=== PATIENT | female | born 1985 | race Caucasian/White ===

== ENCOUNTER 2016-10-27 17:37 | Emergency (ER) | payer MEDICAID ==
[2016-06-22 03:37] VITALS: BMI 35.8
[~2016-10-27 17:37] MED LIST: ABILIFY10 MG PO; ADIPEX-P37.5 MG PO; CELEXA40 MG PO; CIPRO500 MG PO; COLACE100 MG PO; CUBICIN500 MG IV; DEPAKOTE125 MG; DILAUDID 012 MG/30 M IV; FLORAJEN3 CAPS460 MG PO; HYDROCODON-ACE1 EAC7 PO; HYDROCODONE-APA1 TAB PO; KETOROLAC TR15 MG/M1 IV; MELATONIN 3 MG1 TAB PO; METOPROLOL TART50 MG PO; NALOXONE HC0.4 MG/M2 IV; NICODERM C1 PATCH .1 TRANSDERM; NORCO 10/325 TA1 TA1 PO; PERCOCET 10/3251 TA1 PO; PHENERGAN25 M1 PO; SENOKOT-S TABLE1 TAB PO; SEROQUEL100 MG PO; SODIUM CL 0.41000 ML IV; TUMS500 MG PO; VANCOMYCIN H1 G/VIA1 IV; WELLBUTRIN100 MG PO; XANAX1 MG PO
[2016-10-27 20:04] LABS: BASOPHILS 0.3 % (0.0-2.0); EOSINOPHILS 2.1 % (0-7); HEMATOCRIT 38.1 % (36.0-48.0); HEMOGLOBIN 12.4 g/dL (12-16); IMMATURE GRANULOCYTES 0.3 % (0-5); LYMPHOCYTES 42.7 % (15-50); MCH 27.3 pg (26.0-34.0); MCHC 32.5 g/dL (31.0-37.0); MCV 83.9 fL (80.0-100.0); MEAN PLATELET VOLUME 10.2 fL (7.4-10.4); MONOCYTES 7.3 % (2-11); NEUTROPHILS 47.3 % (40-80); PLATELET COUNT 233 10x3/uL (130-400); RBC 4.54 10x6/uL (4.00-5.40); RDW 14.6 % (11.5-14.5); WBC 8.7 10x3/uL (4.8-10.8)
[2016-10-27 20:21] LABS: ALBUMIN 3.8 g/dL (3.4-5.0); ALKALINE PHOSPHATASE 81 U/L (46-116); ALT (SGPT) 26 U/L (10-68); CALC OSMOLALITY 277 mosm/kg (275-300); CALCIUM 9.2 mg/dL (8.5-10.1); CARBON DIOXIDE 25.4 mmol/L (21.0-32.0); CHLORIDE - SERUM 105 mmol/L (98-107); CREATININE - SERUM 0.9 mg/dL (0.6-1.3); GLUCOSE 92 mg/dL (74-106); POTASSIUM - SERUM 4.1 mmol/L (3.5-5.1); PROTEIN - SERUM 7.1 g/dL (6.4-8.2); SODIUM 140 mmol/L (136-145); UREA NITROGEN 11 mg/dL (7-18); eGFR NON AFRICAN AMERICAN 78 mL/min (90-120)
[2016-10-27 20:26] LABS: APPEARANCE CLEAR (CLEAR); BILIRUBIN NEGATIVE (NEGATIVE); COLOR YELLOW (YELLOW); GLUCOSE NEGATIVE (NEGATIVE); KETONE NEGATIVE (NEGATIVE); LEUKOCYTE ESTERASE NEGATIVE (NEGATIVE); NITRITE NEGATIVE (NEGATIVE); PROTEIN NEGATIVE (NEGATIVE); UROBILINOGEN NORMAL (NORMAL)
== END 2016-10-27 20:45 | disposition home or self-care (01) ==
LOC: D.ER 17:37
PROVIDERS: Emergency Medicine
DX: R10.9 Unspecified abdominal pain (principal); N83.201 Unspecified ovarian cyst, right side; F41.9 Anxiety disorder, unspecified; F31.9 Bipolar disorder, unspecified; F17.200 Nicotine dependence, unspecified, uncomplicated

== ENCOUNTER → 2016-11-04 10:10 | Outpatient (CLI) | payer MEDICAID ==
[2016-06-22 03:37] VITALS: BMI 35.8
[2016-11-04 12:14] LABS: BASOPHILS 0.2 % (0.0-2.0); EOSINOPHILS 2.1 % (0-7); HEMOGLOBIN 12.5 g/dL (12-16); IMMATURE GRANULOCYTES 0.2 % (0-5); LYMPHOCYTES 39.9 % (15-50); MCH 27.5 pg (26.0-34.0); MCHC 32.9 g/dL (31.0-37.0); MCV 83.7 fL (80.0-100.0); MEAN PLATELET VOLUME 9.6 fL (7.4-10.4); MONOCYTES 6.3 % (2-11); NEUTROPHILS 51.3 % (40-80); PLATELET COUNT 255 10x3/uL (130-400); RBC 4.54 10x6/uL (4.00-5.40); RDW 14.6 % (11.5-14.5); WBC 8.9 10x3/uL (4.8-10.8)
[2016-11-04 12:27] LABS: C-REACTIVE PROTEIN 0.6 mg/dL (0.0-0.9); URIC ACID 4.1 mg/dL (2.6-7.2)
[2016-11-04 12:30] LABS: COMPLEMENT C4 25.2 mg/dL (17.4-52.2)
[2016-11-04 13:18] LABS: ERYTHROCYTE SEDIMENTATION RATE 12 mm/hr (0-20)
[2016-11-05 11:19] LABS: ANA REFLEX - DIRECT Negative (Negative)
[2016-11-05 22:07] LABS: CYCLIC CITRULL PEPTIDE IGG/IGA 84 units (0-19)
== END | disposition home or self-care (01) ==
LOC: D.MRI 09-18 14:30
PROVIDERS: Orthopaedic Surgery
DX: M13.821 Other specified arthritis, right elbow (principal)

== ENCOUNTER 2016-11-30 14:13 | Emergency (ER) | payer MEDICAID ==
[2016-06-22 03:37] VITALS: BMI 35.8
[2016-11-30 16:41] LABS: APPEARANCE HAZY (CLEAR); COLOR YELLOW (YELLOW)
[2016-11-30 16:42] LABS: BILIRUBIN NEGATIVE (NEGATIVE); GLUCOSE NEGATIVE (NEGATIVE); KETONE NEGATIVE (NEGATIVE); LEUKOCYTE ESTERASE TRACE (NEGATIVE); NITRITE NEGATIVE (NEGATIVE); PROTEIN TRACE mg/dL (NEGATIVE); UROBILINOGEN NORMAL (NORMAL)
[2016-11-30 16:44] LABS: BACTERIA FEW /hpf (NONE SEEN); EPITHELIAL CELLS 0-5 /hpf (0-5); MUCUS >1+ /lpf (NONE SEEN); RED CELLS - URINE 0-5 /hpf (0-5); WHITE CELLS - URINE 0-5 /hpf (0-5)
[2016-11-30 16:45] LABS: AMORPHOUS SEDIMENT <1+ /lpf (NONE SEEN)
[2016-11-30 16:53] LABS: BASOPHILS 0.2 % (0.0-2.0); EOSINOPHILS 1.9 % (0-7); HEMATOCRIT 39.6 % (36.0-48.0); HEMOGLOBIN 13.2 g/dL (12-16); IMMATURE GRANULOCYTES 0.2 % (0-5); LYMPHOCYTES 36.6 % (15-50); MCH 28.4 pg (26.0-34.0); MCHC 33.3 g/dL (31.0-37.0); MCV 85.3 fL (80.0-100.0); MEAN PLATELET VOLUME 9.9 fL (7.4-10.4); MONOCYTES 5.3 % (2-11); NEUTROPHILS 55.8 % (40-80); PLATELET COUNT 242 10x3/uL (130-400); RBC 4.64 10x6/uL (4.00-5.40)
[2016-11-30 17:07] LABS: CALC OSMOLALITY 283 mosm/kg (275-300); CALCIUM 9.3 mg/dL (8.5-10.1); CARBON DIOXIDE 26.9 mmol/L (21.0-32.0); CHLORIDE - SERUM 104 mmol/L (98-107); CREATININE - SERUM 0.8 mg/dL (0.6-1.3); GLUCOSE 84 mg/dL (74-106); POTASSIUM - SERUM 3.2 mmol/L (3.5-5.1); SODIUM 142 mmol/L (136-145); UREA NITROGEN 19 mg/dL (7-18); eGFR NON AFRICAN AMERICAN 89 mL/min (90-120)
== END 2016-11-30 18:12 | disposition home or self-care (01) ==
LOC: D.ER 14:13
PROVIDERS: Nurse Practitioner Acute Care
DX: R11.10 Vomiting, unspecified (principal); F17.200 Nicotine dependence, unspecified, uncomplicated; F41.9 Anxiety disorder, unspecified; F31.9 Bipolar disorder, unspecified; M32.9 Systemic lupus erythematosus, unspecified

== ENCOUNTER 2017-03-27 18:16 | Emergency (ER) | payer SELFPAY ==
[2016-06-22 03:37] VITALS: BMI 35.8
[2017-03-27 19:14] LABS: HCG URINE NEGATIVE (NEGATIVE)
== END 2017-03-27 20:35 | disposition home or self-care (01) ==
LOC: D.ER 18:16
PROVIDERS: Nurse Practitioner Family
DX: L03.113 Cellulitis of right upper limb (principal); M25.521 Pain in right elbow; F41.9 Anxiety disorder, unspecified; M32.9 Systemic lupus erythematosus, unspecified

== ENCOUNTER 2017-06-01 12:24 | Emergency (ER) | payer MEDICAID ==
[2016-06-22 03:37] VITALS: BMI 35.8
== END 2017-06-01 14:24 | disposition home or self-care (01) ==
LOC: D.ER 12:24
DX: M06.9 Rheumatoid arthritis, unspecified (principal)

== ENCOUNTER 2017-06-21 10:46 | Emergency (ER) | payer MEDICAID ==
[2016-06-22 03:37] VITALS: BMI 35.8
== END 2017-06-21 14:16 | disposition home or self-care (01) ==
LOC: D.ER 10:46
DX: L02.214 Cutaneous abscess of groin (principal)

== ENCOUNTER 2017-08-04 18:00 | Emergency (ER) | payer SELFPAY ==
[2016-06-22 03:37] VITALS: BMI 35.8
== END 2017-08-04 22:44 | disposition home or self-care (01) ==
LOC: D.ER 18:00
DX: L02.411 Cutaneous abscess of right axilla (principal); L03.111 Cellulitis of right axilla; F17.200 Nicotine dependence, unspecified, uncomplicated

== ENCOUNTER 2017-08-08 09:35 | Emergency (ER) | payer SELFPAY ==
[2016-06-22 03:37] VITALS: BMI 35.8
== END 2017-08-08 10:25 | disposition home or self-care (01) ==
LOC: D.ER 09:35
DX: L02.411 Cutaneous abscess of right axilla (principal)

== ENCOUNTER 2018-09-05 18:58 | Inpatient (IN) | payer MEDICAID ==
[~2018-09-05] VITALS: Ht 165.1 cm; Wt 88.5 kg
--- NOTE | ~2018-09-05 | MORECARE ---
CASE MANAGEMENT DISCHARGE SUMMARY PATIENT: JUAN FULLER UNIT: [id number] ADM DATE: 09/05/18 AGE: 32 : 87 SEX: F ROOM/BED: D.1212 AUTHOR: TAM,DOC PHYSICIAN: REFERRING PHYSICIAN: FLORENCE PATEL MD DATE OF SERVICE: 09/08/18 Discharge Plan Patient Name: JUAN FULLER Facility: [facility]:[place] : 1985 Planned Disposition: Home Anticipated Discharge Date: Discharge Date: 09/07/2018 Expected LOS: Initial Reviewer: [email or web address] Initial Review Date: 09/06/2018 Generated: 09/08/18 12:02 pm Comments DCP- Discharge Planning Updated by [email or web address]: Imelda Edwards on 09/07/18 5:[address] Patient Name: JUAN FULLER Admission Status: ER Accout number: [id number] Admission Date: 09-05-2018 : 1985 Admission Diagnosis:PAIN IN RIGHT ELBOW Attending: FLORENCE PATEL Current LOS: 2 Anticipated DC Date: Planned Disposition: Home Primary Insurance: MEDICAID [place] Discharge Planning Comments: CM met with patient at bedside. patient states she plans on returning to her home upon discharge. Patient denies any discharge needs at this time. CM will continue to follow and assist with discharge planning / needs Plastic Surgery Coordinator: Imelda Edwards DCPIA - Discharge Planning Initial Assessment Updated by [email or web address]: Imelda Edwards on 09/07/18 6:16 pm * Is the patient Alert and Oriented? Yes * How many steps to enter\exit or inside your home? * PCP [facility] * Pharmacy [facility] * Preadmission Environment Home with Family * ADLs Independent * Equipment None * List name and contact numbers for known caregivers / representatives who currently or will assist patient after discharge: Suzanne Valdez mother [phone] * Verbal permission to speak to the caregivers and representatives has been obtained from the patient. N/A * Community resources currently utilized None * Additional services required to return to the preadmission environment? No * Can the patient safely return to the preadmission environment? Yes * Has this patient been hospitalized within the prior 30 days at any hospital? No Last DP export: 09/07/18 5:23 Patient Name: JUAN FULLER Page [id number] at 1102 All edits/amendments must be made on the electronic document DICTATION DATE: 09/08/18 110 HOSPITAL ADMITTING CLERK: NATHALIA 09/08/18 110 RPT#: [id number] DC DATE:09/07/18 STATUS: DIS IN [facility] [address] [place] [address] END OF REPORT
--- NOTE | ~2018-09-05 | MORECARE ---
CASE MANAGEMENT DISCHARGE SUMMARY PATIENT: JUAN FULLER UNIT: [id number] ADM DATE: 09/05/18 AGE: 32 : 87 SEX: F ROOM/BED: D.1212 AUTHOR: TAM,DOC PHYSICIAN: REFERRING PHYSICIAN: FLORENCE PATEL MD DATE OF SERVICE: 09/07/18 Discharge Plan Patient Name: JUAN FULLER Facility: [facility]:[place] : 1985 Planned Disposition: Home Anticipated Discharge Date: Discharge Date: Expected LOS: Initial Reviewer: [email or web address] Initial Review Date: 09/06/2018 Generated: 09/07/18 7:22 pm Comments DCP- Discharge Planning Updated by [email or web address]: Imelda Edwards on 09/07/18 5:[address] Patient Name: JUAN FULLER Admission Status: ER Accout number: [id number] Admission Date: 09-05-2018 : 1985 Admission Diagnosis:PAIN IN RIGHT ELBOW Attending: FLORENCE PATEL Current LOS: 2 Anticipated DC Date: Planned Disposition: Home Primary Insurance: MEDICAID [place] Discharge Planning Comments: CM met with patient at bedside. patient states she plans on returning to her home upon discharge. Patient denies any discharge needs at this time. CM will continue to follow and assist with discharge planning / needs Security Guard Dispatcher: Imelda Edwards DCPIA - Discharge Planning Initial Assessment Updated by [email or web address]: Imelda Edwards on 09/07/18 6:16 pm * Is the patient Alert and Oriented? Yes * How many steps to enter\exit or inside your home? * PCP [facility] * Pharmacy [facility] * Preadmission Environment Home with Family * ADLs Independent * Equipment None * List name and contact numbers for known caregivers / representatives who currently or will assist patient after discharge: Suzanne Valdez mother [phone] * Verbal permission to speak to the caregivers and representatives has been obtained from the patient. N/A * Community resources currently utilized None * Additional services required to return to the preadmission environment? No * Can the patient safely return to the preadmission environment? Yes * Has this patient been hospitalized within the prior 30 days at any hospital? No Last DP export: 09/07/18 5:15 Patient Name: JUAN FULLER Page [id number] at 1823 All edits/amendments must be made on the electronic document DICTATION DATE: 09/07/181821 WING MAILER MACHINE OPERATOR: NATHALIA 09/07/181821 RPT#: [id number] DC DATE: STATUS: ADM IN [facility] [address] [place] [address] END OF REPORT
--- NOTE | ~2018-09-05 | MORECARE ---
CASE MANAGEMENT DISCHARGE SUMMARY PATIENT: JUAN FULLER UNIT: [id number] ADM DATE: 09/05/18 AGE: 32 : 87 SEX: F ROOM/BED: D.1212 AUTHOR: WEN TURCIOS PHYSICIAN: REFERRING PHYSICIAN: FLORENCE PATEL MD DATE OF SERVICE: 09/07/18 Discharge Plan Patient Name: JUAN FULLER Facility: [facility]:[place] : 1985 Planned Disposition: Home Anticipated Discharge Date: Discharge Date: Expected LOS: Initial Reviewer: [email or web address] Initial Review Date: 09/06/2018 Generated: 09/07/18 7:15 pm Patient Name: JUAN FULLER Page [id number] at 1815 All edits/amendments must be made on the electronic document DICTATION DATE: 09/07/181814 CASINO CAGE SUPERVISOR: NATHALIA 09/07/181814 RPT#: [id number] DC DATE: STATUS: ADM IN [facility] [address] [place] [address] END OF REPORT
[2018-09-05] MEDS ORDERED: MOTRIN600 MG PEG (19:11)
[2018-09-05] MEDS ORDERED: PRENAVITE1 TAB (19:12)
[2018-09-05] MEDS ORDERED: BENADRYL25 MG PO (19:12)
[2018-09-05] MEDS ORDERED: KLONOPIN1 MG PO (19:31)
[2018-09-05] MEDS ORDERED: REXULTI1 MG PO (19:31)
[2018-09-05 20:09] LABS: BASOPHILS 0.2 % (0-2); EOSINOPHILS 1.3 % (0-7); HEMATOCRIT 39.8 % (36.0-48.0); HEMOGLOBIN 13.4 g/dL (12-16); IMMATURE GRANULOCYTES 0.3 % (0-5); MCH 30.2 pg (26.0-34.0); MCHC 33.7 g/dL (31.0-37.0); MCV 89.8 fL (80.0-100.0); MEAN PLATELET VOLUME 9.6 fL (7.4-10.4); MONOCYTES 5.4 % (2-11); NEUTROPHILS 63.8 % (40-80); PLATELET COUNT 248 10x3/uL (130-400); RBC 4.43 10x6/uL (4.00-5.40); RDW 13.1 % (11.5-14.5)
[2018-09-05 20:48] LABS: ALBUMIN 4.1 g/dL (3.4-5.0); ALKALINE PHOSPHATASE 91 U/L (46-116); ALT (SGPT) 88 U/L (10-68); BILIRUBIN - TOTAL 0.21 mg/dL (0.2-1.3); CALC OSMOLALITY 276 mosm/kg (275-300); CARBON DIOXIDE 31.6 mmol/L (21.0-32.0); CHLORIDE - SERUM 103 mmol/L (98-107); CREATININE - SERUM 0.7 mg/dL (0.6-1.3); GLUCOSE 84 mg/dL (74-106); POTASSIUM - SERUM 3.8 mmol/L (3.5-5.1); PROTEIN - SERUM 7.4 g/dL (6.4-8.2); SODIUM 140 mmol/L (136-145); UREA NITROGEN 11 mg/dL (7-18); eGFR NON AFRICAN AMERICAN > 90 mL/min (90-120)
[2018-09-05 23:00] VITALS: BP 164/100
[2018-09-06 00:45] VITALS: BP 142/91
[2018-09-06] MEDS ORDERED: MELATONIN10 M1 PO (01:01)
[2018-09-06 01:08] VITALS: BP 142/91; BMI 32.5
[2018-09-06 01:21] LABS: MACROPHAGES BF 3 %; NEUT - BF 79 %
[2018-09-06 06:14] VITALS: BP 123/87
[2018-09-06 11:00] VITALS: BP 125/85
[2018-09-06 13:57] VITALS: Ht 165.1 cm; Wt 88.5 kg
[2018-09-06 15:13] VITALS: BP 109/63
[2018-09-06 20:06] VITALS: BP 115/56
[2018-09-06 23:57] LABS: UDS - AMPHET NEGATIVE QUAL (NEGATIVE); UDS - BARB NEGATIVE QUAL (NEGATIVE); UDS - BENZO POSITIVE QUAL (NEGATIVE); UDS - COCAINE NEGATIVE QUAL (NEGATIVE); UDS - OPIATE POSITIVE QUAL (NEGATIVE); UDS - PCP NEGATIVE QUAL (NEGATIVE); UDS - THC NEGATIVE QUAL (NEGATIVE)
[2018-09-07] VITALS: BP 124/60
[2018-09-07 00:06] LABS: APPEARANCE CLEAR (CLEAR); BILIRUBIN NEGATIVE (NEGATIVE); COLOR YELLOW (YELLOW); GLUCOSE NEGATIVE (NEGATIVE); KETONE NEGATIVE (NEGATIVE); NITRITE NEGATIVE (NEGATIVE); PROTEIN TRACE mg/dL (NEGATIVE); SPECIFIC GRAVITY 1.025 (1.005-1.020)
[2018-09-07 00:07] LABS: BACTERIA FEW /hpf (NONE SEEN); CALCIUM OXALATE CRYSTALS 0-5 /hpf (NONE SEEN); EPITHELIAL CELLS 0-5 /hpf (0-5); MUCUS <1+ /lpf (NONE SEEN); RED CELLS - URINE NONE SEEN /hpf (0-5); WHITE CELLS - URINE 0-5 /hpf (0-5)
[2018-09-07 04:00] VITALS: BP 127/84
[2018-09-07 05:40] LABS: BASOPHILS 0.4 % (0-2); EOSINOPHILS 2.8 % (0-7); HEMATOCRIT 36.6 % (36.0-48.0); HEMOGLOBIN 11.7 g/dL (12-16); IMMATURE GRANULOCYTES 0.3 % (0-5); MCH 29.4 pg (26.0-34.0); MONOCYTES 6.4 % (2-11); NEUTROPHILS 57.1 % (40-80); PLATELET COUNT 214 10x3/uL (130-400); RBC 3.98 10x6/uL (4.00-5.40); RDW 13.4 % (11.5-14.5)
[2018-09-07 05:53] LABS: CALCIUM 8.7 mg/dL (8.5-10.1); CARBON DIOXIDE 24.8 mmol/L (21.0-32.0); CHLORIDE - SERUM 107 mmol/L (98-107); CREATININE - SERUM 0.8 mg/dL (0.6-1.3); POTASSIUM - SERUM 4.2 mmol/L (3.5-5.1); SODIUM 140 mmol/L (136-145); eGFR NON AFRICAN AMERICAN 89 mL/min (90-120)
[2018-09-07 06:08] LABS: CALC OSMOLALITY 282 mosm/kg (275-300); GLUCOSE 140 mg/dL (74-106); UREA NITROGEN 19 mg/dL (7-18)
[2018-09-07 06:11] LABS: WBC 7.8 10x3/uL (4.8-10.8)
[2018-09-07 07:42] VITALS: BP 121/83
[2018-09-07 11:37] VITALS: BP 135/91
[2018-09-07] MEDS ORDERED: NORCO 7.5/325 T1 TA1 PO (14:26)
[2018-09-07] MEDS ORDERED: AUGMENTIN 875-11 TAB PO (14:27)
== END 2018-09-07 18:50 | disposition home or self-care (01) | DRG 565 ==
LOC: D.ER 18:58 → D.M3 23:23
PROVIDERS: Family Medicine; Internal Medicine Nephrology
DX: M25.421 Effusion, right elbow (principal); F17.213 Nicotine dependence, cigarettes, with withdrawal; M25.821 Other specified joint disorders, right elbow; I10 Essential (primary) hypertension; F41.9 Anxiety disorder, unspecified; M19.021 Primary osteoarthritis, right elbow

== ENCOUNTER 2018-09-09 11:35 | Emergency (ER) | payer MEDICAID ==
[~2018-09-09] VITALS: Ht 165.1 cm; Wt 90.9 kg
[~2018-09-09 11:35] MED LIST changes: +AUGMENTIN 875-11 TAB PO; +BENADRYL25 MG PO; +KLONOPIN1 MG PO; +MELATONIN10 M1 PO; +MOTRIN600 MG PEG; +NORCO 7.5/325 T1 TA1 PO; +PRENAVITE1 TAB; +REXULTI1 MG PO
[2018-09-09 11:43] VITALS: BP 122/84; Ht 165.1 cm; Wt 90.9 kg
== END 2018-09-09 13:22 | disposition left against medical advice (07) ==
LOC: D.ER 11:35
DX: R51 Headache (principal); M79.601 Pain in right arm; R11.0 Nausea; I10 Essential (primary) hypertension; F17.200 Nicotine dependence, unspecified, uncomplicated

== ENCOUNTER 2018-09-14 08:35 | Day surgery (SDC) | payer MEDICAID ==
[~2018-09-14] VITALS: Ht 165.1 cm; Wt 90.9 kg
[2018-09-14 08:30] VITALS: BP 132/82
[2018-09-14 08:58] LABS: BASOPHILS 0.2 % (0-2); EOSINOPHILS 1.4 % (0-7); HEMATOCRIT 40.7 % (36.0-48.0); HEMOGLOBIN 13.6 g/dL (12-16); IMMATURE GRANULOCYTES 0.2 % (0-5); LYMPHOCYTES 21.9 % (15-50); MCHC 33.4 g/dL (31.0-37.0); MCV 89.6 fL (80.0-100.0); MEAN PLATELET VOLUME 9.4 fL (7.4-10.4); MONOCYTES 5.1 % (2-11); NEUTROPHILS 71.2 % (40-80); PLATELET COUNT 235 10x3/uL (130-400); RBC 4.54 10x6/uL (4.00-5.40); RDW 13.3 % (11.5-14.5); WBC 8.8 10x3/uL (4.8-10.8)
[2018-09-14 10:03] VITALS: BP 130/72; BMI 33.3
[2018-09-14 19:33] LABS: MACROPHAGES BF 5 %; NEUT - BF 75 %
[2018-09-14 20:10] VITALS: BP 124/72; Ht 165.1 cm; Wt 90.9 kg
[2018-09-15 01:06] VITALS: BP 130/80
[2018-09-15 06:31] VITALS: BP 125/68
[2018-09-15 09:39] VITALS: BP 126/87
[2018-09-15 12:43] VITALS: BP 127/74
[2018-09-15 14:26] LABS: BASOPHILS 0.2 % (0-2); EOSINOPHILS 0.8 % (0-7); HEMATOCRIT 35.6 % (36.0-48.0); HEMOGLOBIN 11.9 g/dL (12-16); IMMATURE GRANULOCYTES 0.3 % (0-5); MCH 29.8 pg (26.0-34.0); MCHC 33.4 g/dL (31.0-37.0); MEAN PLATELET VOLUME 9.9 fL (7.4-10.4); MONOCYTES 5.8 % (2-11); NEUTROPHILS 66.9 % (40-80); PLATELET COUNT 224 10x3/uL (130-400); RDW 13.1 % (11.5-14.5)
[2018-09-15 14:30] LABS: WBC 11.1 10x3/uL (4.8-10.8)
[2018-09-15 14:40] LABS: CALC OSMOLALITY 277 mosm/kg (275-300); CALCIUM 8.8 mg/dL (8.5-10.1); CARBON DIOXIDE 25.9 mmol/L (21.0-32.0); CHLORIDE - SERUM 104 mmol/L (98-107); CREATININE - SERUM 0.7 mg/dL (0.6-1.3); GLUCOSE 106 mg/dL (74-106); POTASSIUM - SERUM 3.5 mmol/L (3.5-5.1); SODIUM 140 mmol/L (136-145); UREA NITROGEN 10 mg/dL (7-18); eGFR NON AFRICAN AMERICAN > 90 mL/min (90-120)
[2018-09-15] MEDS ORDERED: AUGMENTIN 875-11 TAB PO (16:05)
[2018-09-21 17:13] LABS: AEROBE ID Preliminary report (())
[2018-09-21 17:13] LABS: AEROBE ID Preliminary report (())
== END 2018-09-15 18:45 | disposition home or self-care (01) ==
LOC: D.OPS 08:35 → D.MS 15:43 → D.OPS 09-15 18:45
PROVIDERS: Anesthesiology; Nurse Practitioner Family; Orthopaedic Surgery
DX: M06.821 Other specified rheumatoid arthritis, right elbow (principal); M65.831 Other synovitis and tenosynovitis, right forearm; M24.021 Loose body in right elbow; Z01.812 Encounter for preprocedural laboratory examination

== ENCOUNTER 2019-01-07 21:49 | Emergency (ER) | payer SELFPAY ==
[~2019-01-07] VITALS: Ht 165.1 cm; Wt 88.5 kg
[2019-01-07 22:06] VITALS: Ht 165.1 cm; Wt 88.5 kg
[2019-01-08] MEDS ORDERED: TAMIFLU75 MG PO (00:37)
[2019-01-08 00:54] VITALS: BP 155/89
== END 2019-01-08 00:59 | disposition home or self-care (01) ==
LOC: D.ER 21:49
DX: J09.X2 Influenza due to identified novel influenza A virus with other respiratory manifestations (principal); M79.18 Myalgia, other site

== ENCOUNTER 2019-02-14 15:33 | Emergency (ER) | payer SELFPAY ==
[~2019-02-14] VITALS: Ht 165.1 cm; Wt 88.6 kg
[~2019-02-14 15:33] MED LIST changes: +TAMIFLU75 MG PO
[2019-02-14 15:36] VITALS: BP 148/95; Ht 165.1 cm; Wt 88.6 kg
== END 2019-02-14 18:10 | disposition home or self-care (01) ==
LOC: D.ER 15:33
DX: J06.9 Acute upper respiratory infection, unspecified (principal)

== ENCOUNTER 2019-04-01 21:54 | Emergency (ER) | payer SELFPAY ==
[~2019-04-01] VITALS: Ht 165.1 cm; Wt 86.2 kg
[2019-04-01] MEDS ORDERED: LATUDA40 MG PO (22:08)
[2019-04-01 22:09] VITALS: Ht 165.1 cm; Wt 86.2 kg
[2019-04-01] MEDS ORDERED: BUPRENORPHINE HC8 MG SL (22:39)
[2019-04-01 22:42] LABS: APPEARANCE CLEAR (CLEAR); COLOR YELLOW (YELLOW); HCG URINE NEGATIVE (NEGATIVE); SPECIFIC GRAVITY 1.015 (1.005-1.020)
[2019-04-01 22:43] LABS: BILIRUBIN NEGATIVE (NEGATIVE); GLUCOSE NEGATIVE (NEGATIVE); KETONE NEGATIVE (NEGATIVE); NITRITE NEGATIVE (NEGATIVE); PROTEIN NEGATIVE (NEGATIVE); UROBILINOGEN NORMAL (NORMAL)
[2019-04-01 22:52] LABS: UDS - AMPHET POSITIVE QUAL (NEGATIVE); UDS - BARB NEGATIVE QUAL (NEGATIVE); UDS - BENZO NEGATIVE QUAL (NEGATIVE); UDS - COCAINE NEGATIVE QUAL (NEGATIVE); UDS - OPIATE NEGATIVE QUAL (NEGATIVE); UDS - PCP NEGATIVE QUAL (NEGATIVE); UDS - THC POSITIVE QUAL (NEGATIVE)
[2019-04-01 23:16] LABS: BASOPHILS 0.4 % (0-2); EOSINOPHILS 0.9 % (0-7); HEMATOCRIT 38.3 % (36.0-48.0); HEMOGLOBIN 13.2 g/dL (12-16); IMMATURE GRANULOCYTES 0.3 % (0-5); LYMPHOCYTES 24.3 % (15-50); MCH 29.3 pg (26.0-34.0); MCHC 34.5 g/dL (31.0-37.0); MCV 85.1 fL (80.0-100.0); MONOCYTES 6.1 % (2-11); RDW 13.2 % (11.5-14.5); WBC 9.6 10x3/uL (4.8-10.8)
[2019-04-01 23:17] LABS: PLATELET COUNT 328 10x3/uL (130-400)
[2019-04-01 23:31] LABS: ALBUMIN 4.1 g/dL (3.4-5.0); ALKALINE PHOSPHATASE 87 U/L (46-116); ALT (SGPT) 25 U/L (10-68); BILIRUBIN - TOTAL 0.32 mg/dL (0.2-1.3); CALC OSMOLALITY 277 mosm/kg (275-300); CALCIUM 8.9 mg/dL (8.5-10.1); CARBON DIOXIDE 25.3 mmol/L (21.0-32.0); CHLORIDE - SERUM 102 mmol/L (98-107); CREATININE - SERUM 0.8 mg/dL (0.6-1.3); GLUCOSE 94 mg/dL (74-106); MAGNESIUM - SERUM 2.2 mg/dL (1.8-2.4); POTASSIUM - SERUM 3.8 mmol/L (3.5-5.1); PROTEIN - SERUM 8.1 g/dL (6.4-8.2); SODIUM 139 mmol/L (136-145); UREA NITROGEN 13 mg/dL (7-18); eGFR NON AFRICAN AMERICAN 88 mL/min (90-120)
--- NOTE | 2019-04-01 23:42 | NUR ---
DR PEREZ NOTIFIED AND 1:1 SITTER OBSERVATION ORDERED. SITTER AT BEDSIDE, NOTIFIED CHARGE NURSE AND ATTENDING IN REGARDS TO ASSESSMENT FINDINGS. RESOURCES GIVEN TO PT AND SAFETY PLAN INITIATED.
[2019-04-02 04:39] VITALS: BP 132/85
== END 2019-04-02 06:46 | disposition left against medical advice (07) ==
LOC: D.ER 21:54
PROVIDERS: Emergency Medicine
DX: R45.851 Suicidal ideations (principal); F32.9 Major depressive disorder, single episode, unspecified; F15.10 Other stimulant abuse, uncomplicated

== ENCOUNTER 2019-05-02 11:48 | Emergency (ER) | payer MEDICAID ==
[2019-04-01 22:09] VITALS: BMI 32.5
[~2019-05-02 11:48] MED LIST changes: +BUPRENORPHINE HC8 MG SL; +LATUDA40 MG PO
== END 2019-05-02 12:14 | disposition left against medical advice (07) ==
LOC: D.ER 11:48
DX: R45.851 Suicidal ideations (principal); F32.9 Major depressive disorder, single episode, unspecified; F15.10 Other stimulant abuse, uncomplicated

== ENCOUNTER 2019-05-10 15:51 | Emergency (ER) | payer MEDICAID ==
[~2019-05-10] VITALS: Ht 165.1 cm; Wt 90.9 kg
[2019-05-10 16:12] VITALS: Ht 165.1 cm; Wt 90.9 kg
[2019-05-10 16:40] LABS: BASOPHILS 0.4 % (0-2); EOSINOPHILS 1.4 % (0-7); HEMOGLOBIN 12.4 g/dL (12-16); IMMATURE GRANULOCYTES 0.2 % (0-5); LYMPHOCYTES 23.9 % (15-50); MCH 28.8 pg (26.0-34.0); MCHC 33.5 g/dL (31.0-37.0); MCV 85.8 fL (80.0-100.0); MEAN PLATELET VOLUME 9.8 fL (7.4-10.4); MONOCYTES 4.5 % (2-11); NEUTROPHILS 69.6 % (40-80); RBC 4.31 10x6/uL (4.00-5.40); RDW 13.5 % (11.5-14.5); WBC 10.8 10x3/uL (4.8-10.8)
[2019-05-10 16:57] LABS: ALBUMIN 3.6 g/dL (3.4-5.0); ALKALINE PHOSPHATASE 84 U/L (46-116); ALT (SGPT) 25 U/L (10-68); BILIRUBIN - TOTAL 0.26 mg/dL (0.2-1.3); CALC OSMOLALITY 284 mosm/kg (275-300); CALCIUM 8.6 mg/dL (8.5-10.1); CARBON DIOXIDE 28.4 mmol/L (21.0-32.0); CHLORIDE - SERUM 106 mmol/L (98-107); CREATININE - SERUM 0.8 mg/dL (0.6-1.3); GLUCOSE 100 mg/dL (74-106); PROTEIN - SERUM 7.2 g/dL (6.4-8.2); SODIUM 142 mmol/L (136-145); UREA NITROGEN 17 mg/dL (7-18); eGFR NON AFRICAN AMERICAN 88 mL/min (90-120)
[2019-05-10 16:59] LABS: AMYLASE - SERUM 30 U/L (25-115); LIPASE 125 U/L (73-393)
[2019-05-10 17:00] LABS: PLATELET COUNT 260 10x3/uL (130-400)
[2019-05-10 17:03] LABS: TROPONIN-I < 0.017 ng/mL (0.000-0.060)
[2019-05-10] MEDS ORDERED: TORADOL10 MG PO (17:20)
[2019-05-10 18:22] VITALS: BP 154/87
== END 2019-05-10 17:54 | disposition home or self-care (01) ==
LOC: D.ER 15:51
PROVIDERS: Family Medicine
DX: M77.11 Lateral epicondylitis, right elbow (principal)

== ENCOUNTER 2019-05-18 15:57 | Emergency (ER) | payer SELFPAY ==
[~2019-05-18] VITALS: Ht 165.1 cm; Wt 93.6 kg
[~2019-05-18 15:57] MED LIST changes: +TORADOL10 MG PO
[2019-05-18 16:06] VITALS: BP 134/73; Ht 165.1 cm; Wt 93.6 kg
[2019-05-18] MEDS ORDERED: ULTRAM50 MG PO (16:11)
[2019-05-18] MEDS ORDERED: PREDNISONE1 MG PO (16:25)
== END 2019-05-18 17:48 | disposition home or self-care (01) ==
LOC: D.ER 15:57
DX: Z76.5 Malingerer [conscious simulation] (principal); F41.9 Anxiety disorder, unspecified; R45.1 Restlessness and agitation; M25.521 Pain in right elbow

== ENCOUNTER 2019-05-28 11:16 | Emergency (ER) | payer SELFPAY ==
[~2019-05-28] VITALS: Ht 165.1 cm; Wt 90.7 kg
[~2019-05-28 11:16] MED LIST changes: +PREDNISONE1 MG PO; +ULTRAM50 MG PO
[2019-05-28 11:19] VITALS: Ht 165.1 cm; Wt 90.7 kg
[2019-05-28 12:14] LABS: ALBUMIN 3.6 g/dL (3.4-5.0); ALKALINE PHOSPHATASE 78 U/L (46-116); ALT (SGPT) 24 U/L (10-68); BILIRUBIN - TOTAL 0.25 mg/dL (0.2-1.3); CALC OSMOLALITY 280 mosm/kg (275-300); CALCIUM 9.5 mg/dL (8.5-10.1); CARBON DIOXIDE 26.3 mmol/L (21.0-32.0); CHLORIDE - SERUM 105 mmol/L (98-107); CREATININE - SERUM 0.8 mg/dL (0.6-1.3); GLUCOSE 91 mg/dL (74-106); POTASSIUM - SERUM 4.2 mmol/L (3.5-5.1); PROTEIN - SERUM 7.4 g/dL (6.4-8.2); SODIUM 139 mmol/L (136-145); UREA NITROGEN 21 mg/dL (7-18); eGFR NON AFRICAN AMERICAN 88 mL/min (90-120)
[2019-05-28 12:18] LABS: BASOPHILS 0.2 % (0-2); EOSINOPHILS 2.3 % (0-7); HEMATOCRIT 39.4 % (36.0-48.0); HEMOGLOBIN 13.1 g/dL (12-16); IMMATURE GRANULOCYTES 0.5 % (0-5); LYMPHOCYTES 30.1 % (15-50); MCH 28.7 pg (26.0-34.0); MCHC 33.2 g/dL (31.0-37.0); MCV 86.4 fL (80.0-100.0); MEAN PLATELET VOLUME 9.5 fL (7.4-10.4); MONOCYTES 7.6 % (2-11); NEUTROPHILS 59.3 % (40-80); PLATELET COUNT 239 10x3/uL (130-400); RBC 4.56 10x6/uL (4.00-5.40); RDW 14.4 % (11.5-14.5); WBC 8.8 10x3/uL (4.8-10.8)
[2019-05-28 12:21] LABS: APPEARANCE CLEAR (CLEAR); BILIRUBIN NEGATIVE (NEGATIVE); COLOR YELLOW (YELLOW); GLUCOSE NEGATIVE (NEGATIVE); KETONE NEGATIVE (NEGATIVE); NITRITE NEGATIVE (NEGATIVE); PROTEIN NEGATIVE (NEGATIVE); SPECIFIC GRAVITY 1.025 (1.005-1.020); UROBILINOGEN NORMAL (NORMAL)
[2019-05-28 13:31] LABS: UDS - AMPHET NEGATIVE QUAL (NEGATIVE); UDS - BARB NEGATIVE QUAL (NEGATIVE); UDS - BENZO NEGATIVE QUAL (NEGATIVE); UDS - COCAINE NEGATIVE QUAL (NEGATIVE); UDS - OPIATE NEGATIVE QUAL (NEGATIVE); UDS - PCP NEGATIVE QUAL (NEGATIVE); UDS - THC NEGATIVE QUAL (NEGATIVE)
[2019-05-28 14:30] LABS: ERYTHROCYTE SEDIMENTATION RATE 23 mm/hr (0-20)
[2019-05-28 14:54] VITALS: BP 107/59
== END 2019-05-28 14:54 | disposition home or self-care (01) ==
LOC: D.ER 11:16
PROVIDERS: Emergency Medicine
DX: R10.9 Unspecified abdominal pain (principal); M32.9 Systemic lupus erythematosus, unspecified

== ENCOUNTER 2019-07-11 02:10 | Emergency (ER) | payer MEDICAID ==
[~2019-07-11] VITALS: Ht 165.1 cm; Wt 97.7 kg
[2019-07-11 02:14] VITALS: Ht 165.1 cm; Wt 97.7 kg
[2019-07-11] MEDS ORDERED: KEFLEX500 MG PO (02:17)
[2019-07-11] MEDS ORDERED: VIBRAMYCIN 100100 MG PO (02:36)
[2019-07-11] MEDS ORDERED: HYDROCODONE-A1 UDTA2 PO (02:36)
[2019-07-11 03:14] VITALS: BP 127/71
== END 2019-07-11 03:15 | disposition home or self-care (01) ==
LOC: D.ER 02:10
DX: L03.114 Cellulitis of left upper limb (principal); F17.200 Nicotine dependence, unspecified, uncomplicated

== ENCOUNTER 2019-07-19 17:37 | Emergency (ER) | payer MEDICAID ==
[2019-07-11 02:14] VITALS: BMI 35.8
[~2019-07-19 17:37] MED LIST changes: +HYDROCODONE-A1 UDTA2 PO; +KEFLEX500 MG PO; +VIBRAMYCIN 100100 MG PO
== END 2019-07-19 18:26 | disposition left against medical advice (07) ==
LOC: D.ER 17:37
DX: G47.8 Other sleep disorders (principal)

== ENCOUNTER 2019-08-02 11:49 | Emergency (ER) | payer MEDICAID ==
[~2019-08-02] VITALS: Ht 165.1 cm; Wt 90.9 kg
[2019-08-02 12:19] VITALS: Ht 165.1 cm; Wt 90.9 kg
[2019-08-02 14:00] VITALS: BP 123/82
== END 2019-08-02 14:00 | disposition home or self-care (01) ==
LOC: D.ER 11:49
DX: S41.112A Laceration without foreign body of left upper arm, initial encounter (principal); W45.8XXA Other foreign body or object entering through skin, initial encounter

== ENCOUNTER 2019-10-06 20:53 | Emergency (ER) | payer OTHER ==
[~2019-10-06] VITALS: Ht 165.1 cm; Wt 88.6 kg
[2019-10-06 21:04] VITALS: BP 157/99; Ht 165.1 cm; Wt 88.6 kg
[2019-10-06 21:38] LABS: BASOPHILS 0.2 % (0-2); HEMOGLOBIN 12.4 g/dL (12-16); IMMATURE GRANULOCYTES 0.4 % (0-5); LYMPHOCYTES 28.3 % (15-50); MCH 28.8 pg (26.0-34.0); MCHC 32.6 g/dL (31.0-37.0); MCV 88.4 fL (80.0-100.0); MEAN PLATELET VOLUME 9.2 fL (7.4-10.4); MONOCYTES 4.8 % (2-11); NEUTROPHILS 64.3 % (40-80); RDW 13.7 % (11.5-14.5); WBC 12.2 10x3/uL (4.8-10.8)
[2019-10-06 21:42] LABS: PLATELET COUNT 314 10x3/uL (130-400)
[2019-10-06] MEDS ORDERED: PREDNISONE20 MG PO (21:51)
[2019-10-06] MEDS ORDERED: BACLOFEN20 M1 PO (21:51)
== END 2019-10-06 22:20 | disposition home or self-care (01) ==
LOC: D.ER 20:53
PROVIDERS: Emergency Medicine
DX: M79.621 Pain in right upper arm (principal)

== ENCOUNTER 2019-10-19 02:24 | Emergency (ER) | payer OTHER ==
[~2019-10-19] VITALS: Ht 165.1 cm; Wt 88.6 kg
[~2019-10-19 02:24] MED LIST changes: +BACLOFEN20 M1 PO; +PREDNISONE20 MG PO
[2019-10-19 02:37] VITALS: Ht 165.1 cm; Wt 88.6 kg
[2019-10-19] MEDS ORDERED: ZOLOFT50 MG PO (02:38)
[2019-10-19] MEDS ORDERED: KLONOPIN1 MG PO (02:38)
[2019-10-19 02:54] LABS: BASOPHILS 0.2 % (0-2); EOSINOPHILS 2.4 % (0-7); HEMOGLOBIN 12.7 g/dL (12-16); IMMATURE GRANULOCYTES 0.4 % (0-5); LYMPHOCYTES 32.6 % (15-50); MCH 28.7 pg (26.0-34.0); MCHC 32.6 g/dL (31.0-37.0); MEAN PLATELET VOLUME 9.1 fL (7.4-10.4); MONOCYTES 7.2 % (2-11); NEUTROPHILS 57.2 % (40-80); PLATELET COUNT 329 10x3/uL (130-400); RBC 4.43 10x6/uL (4.00-5.40); RDW 13.8 % (11.5-14.5); WBC 12.5 10x3/uL (4.8-10.8)
[2019-10-19 03:11] LABS: CALC OSMOLALITY 285 mosm/kg (275-300); CALCIUM 8.8 mg/dL (8.5-10.1); CARBON DIOXIDE 28.6 mmol/L (21.0-32.0); CHLORIDE - SERUM 104 mmol/L (98-107); CREATININE - SERUM 0.8 mg/dL (0.6-1.3); GLUCOSE 115 mg/dL (74-106); POTASSIUM - SERUM 3.4 mmol/L (3.5-5.1); SODIUM 142 mmol/L (136-145); UREA NITROGEN 17 mg/dL (7-18); eGFR NON AFRICAN AMERICAN 87 mL/min (90-120)
[2019-10-19 03:17] LABS: ALBUMIN 3.8 g/dL (3.4-5.0); ALKALINE PHOSPHATASE 97 U/L (46-116); ALT (SGPT) 28 U/L (10-68); BILIRUBIN - TOTAL 0.21 mg/dL (0.2-1.3); C-REACTIVE PROTEIN 1.7 mg/dL (0.0-0.9); PROTEIN - SERUM 7.6 g/dL (6.4-8.2)
[2019-10-19 03:48] VITALS: BP 139/83
[2019-10-19 04:05] LABS: ERYTHROCYTE SEDIMENTATION RATE 17 mm/hr (0-20)
== END 2019-10-19 03:47 | disposition home or self-care (01) ==
LOC: D.ER 02:24
PROVIDERS: Family Medicine
DX: M79.621 Pain in right upper arm (principal); M86.9 Osteomyelitis, unspecified

== ENCOUNTER 2019-11-04 16:43 | Emergency (ER) | payer OTHER ==
[~2019-11-04] VITALS: Ht 165.1 cm; Wt 90.9 kg
[~2019-11-04 16:43] MED LIST changes: +ZOLOFT50 MG PO
[2019-11-04 16:46] VITALS: Ht 165.1 cm; Wt 90.9 kg
[2019-11-04 17:13] LABS: APPEARANCE CLEAR (CLEAR); BILIRUBIN NEGATIVE (NEGATIVE); COLOR YELLOW (YELLOW); GLUCOSE NEGATIVE (NEGATIVE); KETONE NEGATIVE (NEGATIVE); NITRITE NEGATIVE (NEGATIVE); PROTEIN NEGATIVE (NEGATIVE); UROBILINOGEN NORMAL (NORMAL)
[2019-11-04 17:23] LABS: BASOPHILS 0.1 % (0-2); EOSINOPHILS 1.5 % (0-7); HEMATOCRIT 36.9 % (36.0-48.0); HEMOGLOBIN 12.1 g/dL (12-16); IMMATURE GRANULOCYTES 0.3 % (0-5); LYMPHOCYTES 27.1 % (15-50); MCH 28.1 pg (26.0-34.0); MCHC 32.8 g/dL (31.0-37.0); MCV 85.8 fL (80.0-100.0); MEAN PLATELET VOLUME 9.4 fL (7.4-10.4); MONOCYTES 6.8 % (2-11); NEUTROPHILS 64.2 % (40-80); PLATELET COUNT 333 10x3/uL (130-400); RDW 12.9 % (11.5-14.5); WBC 9.4 10x3/uL (4.8-10.8)
[2019-11-04 17:30] LABS: CALC OSMOLALITY 278 mosm/kg (275-300); CALCIUM 8.6 mg/dL (8.5-10.1); CARBON DIOXIDE 26.4 mmol/L (21.0-32.0); CHLORIDE - SERUM 103 mmol/L (98-107); CREATININE - SERUM 0.8 mg/dL (0.6-1.3); GLUCOSE 92 mg/dL (74-106); POTASSIUM - SERUM 3.9 mmol/L (3.5-5.1); SODIUM 139 mmol/L (136-145); UREA NITROGEN 15 mg/dL (7-18); eGFR NON AFRICAN AMERICAN 87 mL/min (90-120)
[2019-11-04 17:36] LABS: ALBUMIN 3.6 g/dL (3.4-5.0); ALKALINE PHOSPHATASE 102 U/L (46-116); ALT (SGPT) 27 U/L (10-68); BILIRUBIN - TOTAL 0.31 mg/dL (0.2-1.3)
[2019-11-04] MEDS ORDERED: NAPROSYN500 MG PO (17:53)
[2019-11-04 18:09] VITALS: BP 126/74
== END 2019-11-04 18:10 | disposition home or self-care (01) ==
LOC: D.ER 16:43
PROVIDERS: Family Medicine
DX: M79.631 Pain in right forearm (principal)

== ENCOUNTER 2019-12-20 14:54 | Emergency (ER) | payer OTHER ==
[~2019-12-20] VITALS: Ht 165.1 cm; Wt 97.7 kg
[~2019-12-20 14:54] MED LIST changes: +NAPROSYN500 MG PO
[2019-12-20 15:23] VITALS: BP 151/94; Ht 165.1 cm; Wt 97.7 kg
== END 2019-12-20 18:05 | disposition left against medical advice (07) ==
LOC: D.ER 14:54
DX: S69.90XA Unspecified injury of unspecified wrist, hand and finger(s), initial encounter (principal)

== ENCOUNTER 2020-03-16 17:50 | Emergency (ER) | payer MEDICAID ==
[~2020-03-16] VITALS: Ht 165.1 cm; Wt 93.2 kg
[2020-03-16 18:04] VITALS: Ht 165.1 cm; Wt 93.2 kg
[2020-03-16 18:25] LABS: BILIRUBIN NEGATIVE (NEGATIVE); GLUCOSE NEGATIVE (NEGATIVE); KETONE NEGATIVE (NEGATIVE); NITRITE NEGATIVE (NEGATIVE); SPECIFIC GRAVITY 1.025 (1.005-1.020); UROBILINOGEN NORMAL (NORMAL)
[2020-03-16 18:26] LABS: BASOPHILS 0.4 % (0-2); EOSINOPHILS 2.1 % (0-7); HEMATOCRIT 42.3 % (36.0-48.0); HEMOGLOBIN 13.5 g/dL (12-16); IMMATURE GRANULOCYTES 0.4 % (0-5); LYMPHOCYTES 26.5 % (15-50); MCH 27.8 pg (26.0-34.0); MCHC 31.9 g/dL (31.0-37.0); MEAN PLATELET VOLUME 9.7 fL (7.4-10.4); MONOCYTES 6.6 % (2-11); PLATELET COUNT 310 10x3/uL (130-400); RBC 4.86 10x6/uL (4.00-5.40); WBC 10.3 10x3/uL (4.8-10.8)
[2020-03-16 18:33] LABS: UDS - AMPHET POSITIVE QUAL (NEGATIVE); UDS - BARB NEGATIVE QUAL (NEGATIVE); UDS - BENZO POSITIVE QUAL (NEGATIVE); UDS - COCAINE NEGATIVE QUAL (NEGATIVE); UDS - OPIATE NEGATIVE QUAL (NEGATIVE); UDS - PCP NEGATIVE QUAL (NEGATIVE); UDS - THC POSITIVE QUAL (NEGATIVE)
[2020-03-16 18:35] LABS: CALC OSMOLALITY 271 mosm/kg (275-300); CALCIUM 8.9 mg/dL (8.5-10.1); CARBON DIOXIDE 28.4 mmol/L (21.0-32.0); CHLORIDE - SERUM 103 mmol/L (98-107); CREATININE - SERUM 0.9 mg/dL (0.6-1.3); GLUCOSE 90 mg/dL (74-106); POTASSIUM - SERUM 3.9 mmol/L (3.5-5.1); SODIUM 136 mmol/L (136-145); UREA NITROGEN 13 mg/dL (7-18); eGFR NON AFRICAN AMERICAN 76 mL/min (90-120)
[2020-03-16 18:43] LABS: ALBUMIN 3.7 g/dL (3.4-5.0); ALKALINE PHOSPHATASE 93 U/L (30-120); ALT (SGPT) 25 U/L (10-68); BILIRUBIN - TOTAL 0.21 mg/dL (0.2-1.3); MAGNESIUM - SERUM 2.1 mg/dL (1.8-2.4); PROTEIN - SERUM 7.8 g/dL (6.4-8.2)
[2020-03-16 19:20] VITALS: BP 157/94
== END 2020-03-16 19:20 | disposition home or self-care (01) ==
LOC: D.ER 17:50
PROVIDERS: Family Medicine
DX: F41.9 Anxiety disorder, unspecified (principal); F43.0 Acute stress reaction; R45.851 Suicidal ideations

== ENCOUNTER 2020-03-25 23:18 | Emergency (ER) | payer MEDICAID ==
[~2020-03-25] VITALS: Ht 165.1 cm; Wt 93.2 kg
[2020-03-25 23:38] VITALS: BP 157/111; Ht 165.1 cm; Wt 93.2 kg
== END 2020-03-26 01:22 | disposition home or self-care (01) ==
LOC: D.ER 23:18
DX: F15.10 Other stimulant abuse, uncomplicated (principal); R11.2 Nausea with vomiting, unspecified; R19.7 Diarrhea, unspecified; R63.0 Anorexia

== ENCOUNTER 2021-01-09 15:35 | Emergency (ER) | payer MEDICAID ==
[~2021-01-09] VITALS: Ht 165.1 cm; Wt 102.3 kg
[~2021-01-09 15:35] MED LIST changes: +ACETAMINOPHEN500 M1 PO; +ADDERALL 20 MG20 M1 PO; +CYCLOBENZAPRINE10 MG PO; +IBUPROFEN800 MG PO; +MACROBID100 MG PO; +ZOLOFT100 MG PO
[2021-01-09 15:42] VITALS: BP 124/76; Ht 165.1 cm; Wt 102.3 kg
[2021-01-09 16:15] LABS: BASOPHILS 0.3 % (0-2); HEMATOCRIT 32.1 % (36.0-48.0); HEMOGLOBIN 10.3 g/dL (12-16); IMMATURE GRANULOCYTES 0.1 % (0-5); LYMPHOCYTE ABS# 2.04 10x3/uL (1.18-3.74); LYMPHOCYTES 29.3 % (15-50); MCH 27.8 pg (26.0-34.0); MCHC 32.1 g/dL (31.0-37.0); MCV 86.5 fL (80.0-100.0); MEAN PLATELET VOLUME 9.2 fL (7.4-10.4); MONOCYTES 9.2 % (2-11); NEUTROPHIL ABS# 4.04 10x3/uL (1.56-6.13); NEUTROPHILS 58.1 % (40-80); PLATELET COUNT 265 10x3/uL (130-400); RBC 3.71 10x6/uL (4.00-5.40)
[2021-01-09 16:24] LABS: CALC OSMOLALITY 282 mosm/kg (275-300); CALCIUM 8.7 mg/dL (8.5-10.1); CARBON DIOXIDE 28.7 mmol/L (21.0-32.0); CHLORIDE - SERUM 107 mmol/L (98-107); CREATININE - SERUM 0.8 mg/dL (0.6-1.3); GLUCOSE 112 mg/dL (74-106); POTASSIUM - SERUM 3.6 mmol/L (3.5-5.1); SODIUM 141 mmol/L (136-145); UREA NITROGEN 14 mg/dL (7-18); eGFR NON AFRICAN AMERICAN 87 mL/min (90-120)
[2021-01-09 16:30] LABS: ALKALINE PHOSPHATASE 78 U/L (30-120); ALT (SGPT) 24 U/L (10-68); BILIRUBIN - TOTAL 0.12 mg/dL (0.2-1.3); PROTEIN - SERUM 6.7 g/dL (6.4-8.2)
[2021-01-09] MEDS ORDERED: CLEOCIN HCL300 MG PO (16:43)
== END 2021-01-09 17:05 | disposition home or self-care (01) ==
LOC: D.ER 15:35
PROVIDERS: Emergency Medicine
DX: L03.114 Cellulitis of left upper limb (principal)

== ENCOUNTER 2021-02-11 18:31 | Emergency (ER) | payer MEDICAID ==
[2021-01-09 15:42] VITALS: BMI 37.5
[~2021-02-11 18:31] MED LIST changes: +CLEOCIN HCL300 MG PO
== END 2021-02-11 19:51 | disposition left against medical advice (07) ==
LOC: D.ER 18:31
DX: L08.9 Local infection of the skin and subcutaneous tissue, unspecified (principal)

== ENCOUNTER 2021-02-12 19:57 | Inpatient (IN) | payer MEDICAID ==
[~2021-02-12] VITALS: Ht 165.1 cm; Wt 100.0 kg
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
[2021-02-12 21:00] VITALS: BP 98/55
[2021-02-12 21:03] LABS: ANION GAP 13.6 mmol/L (8-16); CARBON DIOXIDE 24.8 mmol/L (21.0-32.0); CREATININE - SERUM 1.1 mg/dL (0.6-1.3); POTASSIUM - SERUM 3.4 mmol/L (3.5-5.1)
[2021-02-12 21:05] LABS: BASOPHILS 0.2 % (0-2); EOSINOPHILS 0.3 % (0-7); HEMATOCRIT 36.4 % (36.0-48.0); HEMOGLOBIN 11.7 g/dL (12-16); IMMATURE GRANULOCYTES 0.3 % (0-5); LYMPHOCYTE ABS# 2.09 10x3/uL (1.18-3.74); LYMPHOCYTES 12.4 % (15-50); MCH 27.8 pg (26.0-34.0); MCHC 32.1 g/dL (31.0-37.0); MCV 86.5 fL (80.0-100.0); MEAN PLATELET VOLUME 9.7 fL (7.4-10.4); MONOCYTES 6.5 % (2-11); NEUTROPHIL ABS# 13.57 10x3/uL (1.56-6.13); NEUTROPHILS 80.3 % (40-80); RBC 4.21 10x6/uL (4.00-5.40); RDW 14.6 % (11.5-14.5); WBC 16.9 10x3/uL (4.8-10.8)
[2021-02-12 21:09] LABS: ALBUMIN 3.4 g/dL (3.4-5.0); BILIRUBIN - TOTAL 0.9 mg/dL (0.2-1.3); PROTEIN - SERUM 7.9 g/dL (6.4-8.2)
[2021-02-12 21:12] LABS: BILIRUBIN NEGATIVE (NEGATIVE); KETONE NEGATIVE (NEGATIVE); NITRITE POSITIVE (NEGATIVE); UROBILINOGEN NORMAL mg/dL (< 2)
[2021-02-12 21:13] LABS: WHITE CELLS - URINE >50 HPF (0-4)
[2021-02-12 21:14] LABS: SQUAMOUS EPITHELIAL 0-5 HPF (0-4)
[2021-02-12 21:15] LABS: BACTERIA MANY HPF (NONE SEEN)
[2021-02-12 21:18] LABS: PLATELET COUNT 348 10x3/uL (130-400)
[2021-02-12 22:00] VITALS: BP 96/48
[2021-02-12 23:25] VITALS: BP 92/52
[2021-02-12 23:42] VITALS: BP 92/52; Ht 165.1 cm; Wt 100.0 kg
--- NOTE | 2021-02-13 04:48 | NUR ---
I have reviewed this patient and I concur with the Shift Assessment completed by the Licensed Practical Nurse today this shift.
[2021-02-13 05:09] VITALS: BP 124/53
[2021-02-13 05:47] LABS: BASOPHILS 0.2 % (0-2); EOSINOPHILS 0.6 % (0-7); HEMATOCRIT 32.6 % (36.0-48.0); HEMOGLOBIN 10.3 g/dL (12-16); IMMATURE GRANULOCYTES 0.4 % (0-5); LYMPHOCYTE ABS# 2.68 10x3/uL (1.18-3.74); LYMPHOCYTES 19.5 % (15-50); MCH 27.3 pg (26.0-34.0); MCHC 31.6 g/dL (31.0-37.0); MCV 86.5 fL (80.0-100.0); MEAN PLATELET VOLUME 9.9 fL (7.4-10.4); MONOCYTES 9.2 % (2-11); NEUTROPHIL ABS# 9.64 10x3/uL (1.56-6.13); NEUTROPHILS 70.1 % (40-80); PLATELET COUNT 303 10x3/uL (130-400); RBC 3.77 10x6/uL (4.00-5.40); RDW 14.6 % (11.5-14.5); WBC 13.8 10x3/uL (4.8-10.8)
[2021-02-13 06:26] LABS: ALBUMIN 2.9 g/dL (3.4-5.0); ALKALINE PHOSPHATASE 97 U/L (30-120); BILIRUBIN - TOTAL 1.26 mg/dL (0.2-1.3); CALC OSMOLALITY 272 mosm/kg (275-300); CALCIUM 8.5 mg/dL (8.5-10.1); CHLORIDE - SERUM 100 mmol/L (98-107); CREATININE - SERUM 0.9 mg/dL (0.6-1.3); GLUCOSE 99 mg/dL (74-106); POTASSIUM - SERUM 3.7 mmol/L (3.5-5.1); PROTEIN - SERUM 7.1 g/dL (6.4-8.2); SODIUM 136 mmol/L (136-145); UREA NITROGEN 14 mg/dL (7-18); eGFR NON AFRICAN AMERICAN 76 mL/min (90-120)
[2021-02-13 06:34] LABS: ALT (SGPT) 33 U/L (10-68)
[2021-02-13 08:17] VITALS: BP 96/55
[2021-02-13 11:36] VITALS: BP 94/57
--- NOTE | 2021-02-13 13:51 | NUR ---
PATIENT AAOX4, RESP EVEN AND NON LABORED, NO S/S OF DISTRESS, PAIN MEDICATIONS ADMINSITERED AND NO COMPLICATIONS, NO FURTHER NEEDS AT THIS POINT, CLIR, MICHAELP
[2021-02-13 15:58] VITALS: BP 101/51
--- NOTE | 2021-02-13 16:32 | NUR ---
I have reviewed this patient and I concur with the Shift Assessment completed by the Licensed Practical Nurse today this shift.
[2021-02-13 20:43] VITALS: BP 105/67
[2021-02-13 23:48] VITALS: BP 102/68
--- NOTE | 2021-02-14 | NUR ---
NEW 20G PIV SITED TO [facility], PT TOLERATED WELL. PT AGREED TO BE CONNECTED BACK TO ORDERED.
[2021-02-14 05:43] LABS: BASOPHILS 0.2 % (0-2); EOSINOPHILS 2.7 % (0-7); HEMOGLOBIN 9.6 g/dL (12-16); IMMATURE GRANULOCYTES 0.3 % (0-5); LYMPHOCYTES 22.4 % (15-50); MCH 27.7 pg (26.0-34.0); MCV 86.5 fL (80.0-100.0); MEAN PLATELET VOLUME 9.5 fL (7.4-10.4); MONOCYTES 7.2 % (2-11); NEUTROPHILS 67.2 % (40-80); PLATELET COUNT 265 10x3/uL (130-400); RBC 3.47 10x6/uL (4.00-5.40); RDW 14.1 % (11.5-14.5)
[2021-02-14 05:57] LABS: WBC 8.9 10x3/uL (4.8-10.8)
[2021-02-14 06:22] LABS: ALBUMIN 2.6 g/dL (3.4-5.0); ALKALINE PHOSPHATASE 140 U/L (30-120); BILIRUBIN - TOTAL 0.69 mg/dL (0.2-1.3); CALC OSMOLALITY 274 mosm/kg (275-300); CALCIUM 8.6 mg/dL (8.5-10.1); CHLORIDE - SERUM 102 mmol/L (98-107); CREATININE - SERUM 0.7 mg/dL (0.6-1.3); GLUCOSE 109 mg/dL (74-106); POTASSIUM - SERUM 3.6 mmol/L (3.5-5.1); PROTEIN - SERUM 6.7 g/dL (6.4-8.2); SODIUM 137 mmol/L (136-145); UREA NITROGEN 13 mg/dL (7-18); eGFR NON AFRICAN AMERICAN > 90 mL/min (90-120)
[2021-02-14 06:39] LABS: ALT (SGPT) 73 U/L (10-68)
[2021-02-14 08:51] VITALS: BP 103/57
[2021-02-14 13:06] VITALS: BP 92/50
[2021-02-14 15:51] VITALS: BP 96/52
[2021-02-14 21:05] VITALS: BP 84/43
--- NOTE | 2021-02-14 22:29 | NUR ---
INITIAL ROUNDS COMPLETED AT 1915 HRS. PT RESTING WITH EYES CLOSED. RESP EVEN AND REGULAR. MORPHINE 4MG SIVP GIVNE FOR C/O SEVERE R FLANK PAIN AT 1948 HRS. ASSESSMENT COMPLETED AT 1950 HRS. VSS. ALERT AND ORIENTED TO PERSON, PLACE AND TIME. KINNEY. PALPABLE PERIPHERAL PULSES. BRUISES IN VARIOUS STAGES OF HEALING NOTED TO BILAT ARMS AND SHOULDERS. L BLACK EYE NOTED. INCISION TO L THIGH WITH SUTURES. LUNGS ESSENTIALLY CTA. IV TO RAC SL. PT OUT OF ROOM WHEN MADE ROUNDS. PM MEDS GIVEN . REFUSES IV FLUIDS. PT CURRENTLY RESTING WITH EYES CLOSED. RESP EVEN AND REGULAR. CALL LIGHT WITHIN REACH.
[2021-02-15 00:25] VITALS: BP 94/47
--- NOTE | 2021-02-15 00:43 | NUR ---
IV SL'D PER PT'S INSISTANCE. REFUSED 2400 VS. INFORMED PT NEEDED A BP BEFORE PAIN MED ADMINISTRATION. PT STATED OK. BP 94/47. MORPHINE 4MG SIVP GIVEN TO IV TO RAC. CALL LIGHT WITHIN REACH.
[2021-02-15 00:59] VITALS: BP 91/47
--- NOTE | 2021-02-15 02:21 | NUR ---
PT RESTING WITH EYES CLOSED. RESP EVEN AND REGULAR. SR UP X2,CALL LIGHT WITHIN REACH.
--- NOTE | 2021-02-15 04:25 | NUR ---
PT RESTING WITH EYES CLOSED. RESP EVEN AND REGULAR. CALL LIGHT WITHIN REACH.
--- NOTE | 2021-02-15 04:47 | NUR ---
PT BACK FROM OUTSIDE. GAIT EVEN AND STEADY. HAS C/O L FLANK PAIN 05/27. MORPHINE 4MG SIVP TO RAC GIVEN. CALL LIGHT WITHIN REACH.
[2021-02-15 06:11] VITALS: BP 90/54
--- NOTE | 2021-02-15 06:27 | NUR ---
VSS THROUGHOUT NIGHT. REQUESTING PAIN MEDS EVERY 4 HRS. NEEDS MET; WILL CONTINUE TO MONITOR.
[2021-02-15 06:50] LABS: BASOPHILS 0.3 % (0-2); EOSINOPHILS 4.2 % (0-7); HEMATOCRIT 30.9 % (36.0-48.0); HEMOGLOBIN 9.7 g/dL (12-16); IMMATURE GRANULOCYTES 0.5 % (0-5); LYMPHOCYTE ABS# 2.39 10x3/uL (1.18-3.74); LYMPHOCYTES 32.7 % (15-50); MCH 27.3 pg (26.0-34.0); MCHC 31.4 g/dL (31.0-37.0); MEAN PLATELET VOLUME 10.1 fL (7.4-10.4); MONOCYTES 8.2 % (2-11); NEUTROPHIL ABS# 3.96 10x3/uL (1.56-6.13); NEUTROPHILS 54.1 % (40-80); PLATELET COUNT 293 10x3/uL (130-400); RBC 3.55 10x6/uL (4.00-5.40); RDW 13.8 % (11.5-14.5); WBC 7.3 10x3/uL (4.8-10.8)
--- NOTE | 2021-02-15 07:00 | NUR ---
RECEIVED REPORT. ASSUMED CARE OF PATIENT. PT RESTING WITH EYES CLOSED, RESP EVEN AND UNLABORED, EASILY AROUSED. REPORTS OF PATIENT LEAVING UNIT TO GO OUTSIDE AND SMOKE. BEDSIDE SHIFT REPORT COMPLETED, WHITE BOARD UPDATED. NO DISTRESS. CALL LIGHT WITHIN REACH.
[2021-02-15 07:20] LABS: ALBUMIN 2.6 g/dL (3.4-5.0); ALKALINE PHOSPHATASE 157 U/L (30-120); BILIRUBIN - TOTAL 0.25 mg/dL (0.2-1.3); CALC OSMOLALITY 277 mosm/kg (275-300); CALCIUM 8.4 mg/dL (8.5-10.1); CARBON DIOXIDE 24.4 mmol/L (21.0-32.0); CHLORIDE - SERUM 104 mmol/L (98-107); CREATININE - SERUM 0.8 mg/dL (0.6-1.3); GLUCOSE 86 mg/dL (74-106); POTASSIUM - SERUM 3.8 mmol/L (3.5-5.1); PROTEIN - SERUM 6.6 g/dL (6.4-8.2); SODIUM 139 mmol/L (136-145); UREA NITROGEN 14 mg/dL (7-18); eGFR NON AFRICAN AMERICAN 87 mL/min (90-120)
[2021-02-15 07:28] LABS: ALT (SGPT) 102 U/L (10-68)
[2021-02-15 08:26] VITALS: BP 97/56
--- NOTE | 2021-02-15 10:06 | NUR ---
PATIENT REQUESTED MORPHINE, INFORMED PATIENT MORPHINE WAS DISCONTINUED THIS MORNING. PATIENT STATES WELL I AM READY TO GO, I NEED TO SEE MY DOCTOR AND GET OUT OF HERE. GINA GRIMES PAGED TO NOTIFY THAT PATIENT WAS REQUESTING DISCHARGE SINCE SHE COULD NOT HAVE MORPHINE. PATIENT IS NOW OFF UNIT AND OUTSIDE SMOKING. CORNELIO REPLIED AND STATES HE WILL PROVIDED DISCHARGE ORDERS SOON. THANKED CORNELIO.
[2021-02-15] MEDS ORDERED: LEVOFLOXACIN500 MG PO (10:58)
--- NOTE | 2021-02-15 11:45 | NUR ---
20 GAUGE IV REMOVED FROM RIGHT AC. CATHETER TIP INTACT. NO BLEEDING FROM SITE. 2X2 GAUZE APPLIED AND SECURED WITH BANDAID. TOLERATED IV REMOVAL WELL.
--- NOTE | 2021-02-15 12:00 | NUR ---
DISCHARE INSTRUCTIONS PROVIDED TO PATIENT. PATIENT DISCHARGED TO HOME. PATIENT VERBALZIED UNDERSTANDING OF ALL INSTRUCTIONS PROVIDED. PATIENT STATES SHE WILL STAY AND EAT HER LUNCH BEFORE SHE LEAVE. NO DISTRESS.
--- NOTE | 2021-02-15 13:40 | NUR ---
UNKNOW WHAT TIME PATIENT TOOK ALL BELONGINGS FROM ROOM AND LEFT UNIT. PATIENT OFF UNIT MULTIPLE TIMES THIS AM TO SMOKE. NO PERSONAL BELONGINGS LEFT IN PATIENT ROOM.
--- NOTE | 2021-02-15 18:10 | MORECARE ---
CASE MANAGEMENT DISCHARGE SUMMARY PATIENT: JUAN FULLER UNIT: [id number] ADM DATE: 02/12/21 AGE: 35 : 86 SEX: F ROOM/BED: 2121 AUTHOR: TAM,DOC PHYSICIAN: REFERRING PHYSICIAN: JADON OWENS MD DATE OF SERVICE: 02/15/21 Case Management Discharge Planning Summary DCP REVIEW SUMMARY ANTICIPATED D/C DATE: 02/15/2021 EXPECTED LOS : 3 CASE STATUS: DCP Initiated INITIAL REVIEW: 02/12/2021 INITIAL REVIEWER: Gee Medina FINAL DISCHARGE DISPOSITION: : FINAL REVIEWER: FINAL REVIEW DATE: DCP Focus Questions & Answers QUESTION: ANSWER : PATIENT: JUAN FULLER ENCOUNTER: [id number] MEDICAL RECORD#: [id number] ADMISSION DATE: 02/12/2021 DISCHARGE DATE: 02/15/2021 ATTENDING MD: : AGE: 35 MARITAL STATUS: S DC PLAN ID: [id number] FACILITY: [facility] PRINTED ON: 02/15/21 18:10 CT All edits/amendments must be made on the electronic document DICTATION DATE: 02/15/211809 HOSPITAL INTERN: NATHALIA 02/15/211809 RPT#: [id number] DC DATE:02/15/21 STATUS: DIS IN [facility] [address] [place] [address] END OF REPORT
--- NOTE | 2021-02-15 18:21 | MORECARE ---
CASE MANAGEMENT DISCHARGE SUMMARY PATIENT: JUAN FULLER UNIT: [id number] ADM DATE: 02/12/21 AGE: 35 : 86 SEX: F ROOM/BED: D.8575 AUTHOR: TAMDOC PHYSICIAN: REFERRING PHYSICIAN: JADON OWENS MD DATE OF SERVICE: 02/15/21 Case Management Discharge Planning Summary COMMENTS ENTERED DATE: 02/15/21 18:14 CT COMMENT TYPE: Discharge Planning REVIEWER: Gee Medina CM met with patient to complete DC plan and to evaluate needs. Patient lives alone with strong support. Patient stated that her person to notify is her mother, Suzanne Valdez, . Patient stated that her home is safe and has electricity and running water. Patient stated that she has no problems paying for medications and she fills her medications at [facility] on [address]. Patient stated that her primary care physician is Dr. Mejia. At discharge, the patient plans to return home and feels this is a safe discharge. CM discussed availability of home health, rehab services, and medical equipment. Patient declined HHS, SNF, IPR, and DME. Patient voiced no other needs at this time and is satisfied with DC plan. CM will continue to follow and will assist as needed with dc plans/needs. DCP REVIEW SUMMARY ANTICIPATED D/C DATE: 02/15/2021 EXPECTED LOS : 3 CASE STATUS: DCP Initiated INITIAL REVIEW: 02/12/2021 INITIAL REVIEWER: Gee Medina FINAL DISCHARGE DISPOSITION: : FINAL REVIEWER: FINAL REVIEW DATE: DCP Focus Questions & Answers DCP Evaluation QUESTION: ANSWER Patient gives permission to discuss discharge plans with: (name, relationship and number) : mother, Suzanne Valdez, Patient's ability to cope with chronic illness : d. No chronic illness Patient's current cognitive status: : *Oriented to person, place, situation, time and present Family / Caregiver's ability to cope with chronic illness: : a. Adequate (ability to meet patient's medical needs, ensures patient attends medical appts.) Patient and/or caregiver agree upon recommended discharge plan? : Yes Physical Status: : Independent with ADL's Family / Caregiver's ability to cope with chronic illness: : a. Adequate (ability to meet patient's medical needs, ensures patient attends medical appts.) Functional screen assessment: : Basic needs can adequately be met by self Does the patient have the ability to pay for or attain post discharge needs / services? : Yes Living Arrangements: : Home Alone with Support Is there a likelihood that the patient will require additional services to return to the preadmission environment? : No Equipment needed for post hospitalization: : None Baseline cognitive status: : *Oriented to person, place, situation, time and present Patient with capacity for self-care or can be cared for in same environment as prior to hospitalization? : Yes Physical environment modification needed / anticipated for discharge: : No Medication Management: : Patient states can afford medications Medication Management: : Patient states can read and understand medication labels Pharmacy name(s): : [facility] [address] Does Patient have transportation to get home and to follow-up medical appointments when discharged from the hospital? : Yes Would patient like to participate in any Care Coordination programs (if applicable): : Not applicable Does the patient have electricity at home? : Yes Does the patient have running water in their house? : Yes Equipment in use: : None Mental health screen: : No mental health history DCP Re-evaluation QUESTION: ANSWER Would patient like to participate in any Care Coordination programs (if applicable): : Not applicable PATIENT: JUAN FULLER ENCOUNTER: [id number] MEDICAL RECORD#: [id number] ADMISSION DATE: 02/12/2021 DISCHARGE DATE: 02/15/2021 ATTENDING MD: KEVIN: AGE: 35 MARITAL STATUS: S DC PLAN ID: [id number] FACILITY: [facility] PRINTED ON: 02/15/21 18:21 CT All edits/amendments must be made on the electronic document DICTATION DATE: 02/15/211820 TATTOO ARTIST: NATHALIA 02/15/211820 RPT#: [id number] DC DATE:02/15/21 STATUS: DIS IN [facility] [address] [place] [address] END OF REPORT
== END 2021-02-15 13:41 | disposition home or self-care (01) | DRG 690 ==
LOC: D.ER 19:57 → D.M2 22:13
PROVIDERS: Emergency Medicine; ADMIT Emergency Medicine; ATTEND Emergency Medicine
DX: N10 Acute pyelonephritis (principal); E87.1 Hypo-osmolality and hyponatremia; Y04.2XXA Assault by strike against or bumped into by another person, initial encounter; T14.8XXA Other injury of unspecified body region, initial encounter; S71.112D Laceration without foreign body, left thigh, subsequent encounter; E87.6 Hypokalemia; B96.20 Unspecified Escherichia coli [E. coli] as the cause of diseases classified elsewhere; F31.9 Bipolar disorder, unspecified

== ENCOUNTER 2021-02-21 12:50 | Emergency (ER) | payer MEDICAID ==
[~2021-02-21] VITALS: Ht 165.1 cm; Wt 100.0 kg
[~2021-02-21 12:50] MED LIST changes: +LEVOFLOXACIN500 MG PO
[2021-02-21 12:54] VITALS: BP 143/95; Ht 165.1 cm; Wt 100.0 kg
== END 2021-02-21 14:10 | disposition home or self-care (01) ==
LOC: D.ER 12:50
DX: Z48.02 Encounter for removal of sutures (principal); M32.9 Systemic lupus erythematosus, unspecified